=== PATIENT | male | born 1975 | race Caucasian/White ===

== ENCOUNTER 2023-08-22 10:57 | Day surgery (SDC) | payer BC ==
[~2023-08-22 10:57] MED LIST: Lactated Ringers 1,000 ML IV SCH
[2023-08-22] MEDS ORDERED: Propofol 200 MG/20 ML SDV ONE ×2 (11:56→12:14)
[2023-08-22] MEDS ORDERED: fentaNYL 100 MCG/2 ML SDV ONE (11:56)
== END 2023-08-22 13:20 | disposition home or self-care (01) ==
LOC: VM.SDS 10:57 → MERGE 12:00 → VM.SDS 13:20
PROVIDERS: ATTEND Surgery
DX: Z12.11 Encounter for screening for malignant neoplasm of colon (principal); D12.6 Benign neoplasm of colon, unspecified; I10 Essential (primary) hypertension; F32.A Depression, unspecified; E78.2 Mixed hyperlipidemia; I73.00 Raynaud's syndrome without gangrene; F41.1 Generalized anxiety disorder; I12.9 Hypertensive chronic kidney disease with stage 1 through stage 4 chronic kidney disease, or unspecified chronic kidney disease; N18.31 Chronic kidney disease, stage 3a; E66.9 Obesity, unspecified; G47.00 Insomnia, unspecified; J45.20 Mild intermittent asthma, uncomplicated; Z91.09 Other allergy status, other than to drugs and biological substances; Z79.899 Other long term (current) drug therapy; Z68.34 Body mass index [BMI] 34.0-34.9, adult
CPT/HCPCS: 00812; J2704; J3010; J7120